=== PATIENT | female | born 1960 | race Caucasian/White ===

== ENCOUNTER → 2019-05-07 11:25 | Outpatient (CLI) | payer BC, SELFPAY ==
--- NOTE | ~2019-05-07 | MM_ITS ---
EXAMINATION: MM screening [facility] BI w [facility] HISTORY: Screening mammogram TECHNIQUE: Craniocaudal and mediolateral oblique 3-D tomosynthesis images were obtained and synthetic 2-D images were generated. CAD analysis was submitted and interpreted. COMPARISON: Comparison to multiple prior studies sequentially, with oldest reviewed study dated 04/12. BREAST PARENCHYMAL COMPOSITION: There are scattered areas of fibroglandular density. FINDINGS: There is a cluster of pleomorphic calcifications upper outer quadrant of the right breast a nd area of previous biopsy. These calcifications have increased in number and density compared with p rior study. The left breast is stable without evidence for malignancy. IMPRESSION: 1. Progression of pleomorphic calcifications upper outer quadrant of the right breast. 2. Stereotactic right breast biopsy recommended. BI-RADS CATEGORY 4-SUSPICIOUS ABNORMALITY Reviewed, dictated and finalized at location A. NISTRATIVE ASSISTANT FRONT DESK
== END ==
PROVIDERS: Visit Provider Nurse Practitioner
DX: Z12.31 Encounter for screening mammogram for malignant neoplasm of breast (principal); R92.8 Other abnormal and inconclusive findings on diagnostic imaging of breast
CPT/HCPCS: 77063; 77067

== ENCOUNTER → 2020-04-24 08:48 | Outpatient (CLI) | payer BC, SELFPAY ==
--- NOTE | ~2020-04-24 | MMUS_ITS ---
EXAMINATION: MM diagnostic [facility] BI w [facility], US breast RT limited HISTORY: Right breast microcalcifications TECHNIQUE: Bilateral ML, MLO and craniocaudal 3-D tomosynthesis images were performed and synthetic 2 -D images were generated. Bilateral rotated lateral cc views. Magnification views of the right breast. CAD analysis was submitted and interpreted. High resolution breast ultrasound was performed. COMPARISON: 05/22/2018 diagnostic right digital mammogram and limited right breast ultrasound 04/27/2018 bilateral digital screening mammogram 04/25/2017 diagnostic right digital mammogram and limited right breast ultrasound 04/14/2017, 04/12/2016, 04/03/2015 and 03/25/2014 bilateral digital screening mammogram examinations FINDINGS: MAMMOGRAPHIC FINDINGS: There is chronic asymmetric increased density in the upper outer quadrant of the right breast. There are some microcalcifications in the very posterior aspect of the upper outer quadrant of the ri ght breast. There is a biopsy marker and this area; history of prior benign right breast biopsy of is location. No interval suspicious mass or new architectural distortion, malignant calcification, skin thickening or retraction or other significant change of either breast is evident. ULTRASOUND: No suspicious mass is evident. No suspicious shadowing is evident. IMPRESSION: 1. Probable benign findings 2. 6 month diagnostic right mammogram and right upper outer quadrant breast ultrasound follow-up is r ecommended. BI-RADS category 3, probably benign findings. Reviewed, dictated and finalized at location A. WAL SPECIALIST IMPRESSION: 1. Probable benign findings 2. 6 month diagnostic right mammogram and right upper outer quadrant breast ult rasound follow-up is recommended. BI-RADS category 3, probably benign findings.
== END ==
PROVIDERS: Visit Provider Nurse Practitioner
DX: R92.8 Other abnormal and inconclusive findings on diagnostic imaging of breast (principal)
CPT/HCPCS: 76642; 77062; 77066; G0279

== ENCOUNTER → 2021-06-28 09:16 | Outpatient (CLI) | payer BC, SELFPAY ==
--- NOTE | ~2021-06-28 | DEXA_ITS ---
Bone Density Report Name: ANGELA LOZOYA Age: 61 Sex: Female Ethnicity: White Date of : 1960 Indication: postmenopausal; screening for osteoporosis; Referring Provider: PASHA, KHANG Study: Bone densitometry was performed. Exam Date: June 28, 2021 Accession number: [id number] Bone Density: Region BMD T-score Z-score Classification AP Spine (L1-L4) 1.225 1.6 3.2 Normal Femoral Neck (Left) 0.937 0.8 2.2 Normal Total Hip (Left) 1.032 0.7 1.8 Normal Femoral Neck (Right) 0.935 0.8 2.2 Normal Total Hip (Right) 1.009 0.6 1.7 Normal Total Hip Mean 1.021 0.7 1.8 Normal World Health Organization criteria for BMD impression classify patients as: Normal (T-score at or above -1.0), Osteopenia (T-score between -1.0 and -2.5), or Osteoporosis (T-score at or below -2.5). 10-year Fracture Risk: FRAX not reported because: All T-scores for Spine Total, Hip Total, Femoral Neck at or above -1.0 Previous Exams: Region Exam Age BMD T-score BMD Change BMD Change Date g/cm2 vs Baseline vs Previous AP Spine(L1-L4) 06/28/2021 61 1.225 1.6 -0.098* -0.062* 04/12/2016 55 1.288 2.2 -0.036* -0.036* 03/04/2013 52 1.323 2.5 Total Hip(Left) 06/28/2021 61 1.032 0.7 -0.066* -0.084* 04/12/2016 55 1.116 1.4 0.018 0.018 03/04/2013 52 1.098 1.3 Total Hip(Right) 06/28/2021 61 1.009 0.6 -0.077* -0.039* 04/12/2016 55 1.049 0.9 -0.038* -0.038* 03/04/2013 52 1.086 1.2 *Denotes significance at 95% confidence level, LSC for AP Spine = 0.022 g/cm2, LSC for Total Hip = 0.027 g/cm2 Clinical Information Provided by Patient: Has used the following medications: Vitamin D Patient maximum height was 67.5 Menopause Age: 58 Drinks caffeinated beverages Onset of menses at age 11.5 Number of children 2 Impression: The patient has normal bone mass. The BMD for the AP Spine(L1-L4) decreased, changing by -0.062 since the last DXA exam. The BMD for the Total Hip(Left) decreased, changing by -0.084 since the last DXA exam. The BMD for the Total Hip(Right) decreased, changing by -0.039 since the last DXA exam. Discussion: BONE DENSITY IS ABOVE THE MINIMUM DESIRABLE LEVEL AT ALL SKELETAL SITES TESTED. This patient?s bone mineral density is above the minimum desirable level (T-score -1.0 or better) at all sites measured. The patient shou
--- NOTE | ~2021-06-28 | MMUS_ITS ---
EXAMINATION: MM diagnostic [facility] BI w [facility], US breast RT limited HISTORY: Short-term follow-up of chronic asymmetric increased density in the upper outer quadrant of right breast and posterior upper outer quadrant right microcalcifications TECHNIQUE: ML, MLO and craniocaudal 3-D tomosynthesis images of both breasts were performed and synth etic 2-D images were generated. Magnification views of right breast 3 projections. CAD analysis was s ubmitted and interpreted. High resolution upper outer quadrant right breast ultrasound was performed. COMPARISON: April 24, 2020 diagnostic bilateral mammogram and limited right breast ultrasound May 07, 2019 bilateral screening mammogram 05/22/2018 diagnostic right mammogram and limited right breast ultrasound 04/27/2018 bilateral screening mammogram 04/25/2017 diagnostic right mammogram and limited right breast ultrasound 04/14/2017 bilateral screening mammogram BREAST PARENCHYMAL COMPOSITION: The breasts are heterogeneously dense, which may obscure small masses . FINDINGS: MAMMOGRAPHIC FINDINGS: There is chronic asymmetric increased density in the upper outer right breast compared to the left. There is a biopsy marker in the posterior upper outer right breast. Grouped microcalcifications are again noted in the posterior upper outer quadrant of the right breast . These are relatively circular or oval in shape. No suspicious linear or branching microcalcificatio ns are noted. ULTRASOUND: Right breast 10:00 6.5 cm from nipple: Parallel circumscribed 8 x 3.2 x 4.7 mm solid lesion without i nternal vascularity or suspicious shadowing No suspicious mass or shadowing of the right breast upper outer quadrant is noted. IMPRESSION: 1. Probably benign findings of right breast 2. 6 month diagnostic right mammogram and right breast ultrasound follow-up are recommended BI-RADS category 3, probably benign findings. Reviewed, dictated and finalized at location A. IMPRESSION: 1. Probably benign findings of right breast 2. 6 month diagnostic right mammogram and right breast ultrasound follow-up are recommended BI-RADS category 3, probably benign findings.
== END ==
PROVIDERS: PCP Family Medicine; Visit Provider Nurse Practitioner
DX: R92.8 Other abnormal and inconclusive findings on diagnostic imaging of breast (principal); Z78.0 Asymptomatic menopausal state
CPT/HCPCS: 76642; 77062; 77066; 77080; G0279

== ENCOUNTER 2022-03-15 11:00 | Emergency (ER) | payer BC, SELFPAY ==
--- NOTE | ~2022-03-15 | XR_ITS ---
AP view of the pelvis and AP and lateral views of the left hip Clinical history: Pain Findings: No acute fracture or dislocation is seen. Osseous alignment is anatomic. Bilateral hip and SI joint spaces are preserved. Soft tissues are unremarkable. Impression: No significant abnormality is seen. Reviewed, dictated and finalized at [facility]. OR COMMISSIONS ANALYST Impression: No significant abnormality is seen.
--- NOTE | 2022-03-15 11:04 | ED.BACK ---
HPI - Back Pain/Injury General Chief Complaint: Back Pain/Injury Stated Complaint: lower back,lt hip pain Time Seen by Provider: 03/15/22 11:29 Source: patient, RN notes reviewed and old records reviewed Mode of arrival: ambulatory Limitations: no limitations History of Present Illness HPI Narrative: 61-year-old female presents to the [facility] with complaints of left hip pain for over 1 week. Was treating at home, believed it was bursitis. Has been taking ibuprofen. Monday she states she felt better, clean the house. States that she normally walks about a miles a day. Woke up Monday with increased pain. Tried calling primary care provider with they were closed yesterday. Denies any injury. No bruising or swelling noted walks with a normal gait. Pain is better when she lays back Related Data Home Medications Medication Instructions Recorded Confirmed cholecalciferol (vitamin D3) 10 10 mcg PO DAILY 07/14/21 03/15/22 mcg (400 unit) capsule levothyroxine 50 mcg capsule 50 mcg PO DAILY 07/14/21 03/15/22 Allergies Allergy/AdvReac Type Severity Reaction Status Date / Time Antihistamines - Allergy Severe system Verified 03/15/22 11:11 Ethylenediamine irritation aspirin Allergy Severe esophagus Verified 03/15/22 11:11 and stomach irritation Review of Systems Review of Systems: All systems reviewed & are unremarkable except as noted in HPI and below Constitutional: Constitutional: Reports no additional constitutional complaints Eyes: Eyes: Reports no additional eye complaints ENT: Reports system reviewed and no additional complaints, except as documented Cardiovascular: Cardiovascular: Reports no additional cardiovascular complaints, Denies chest pain and Denies dyspnea Respiratory: Respiratory: Reports no additional respiratory complaints, Denies chest congestion, Denies cough and Denies dyspnea Gastrointestinal: Gastrointestinal: Reports no additional gastrointestinal complaints, Denies abdominal pain, Denies nausea and Denies vomiting Musculoskeletal: Musculoskeletal: Reports as per HPI, Reports arthralgias (Left hip) and Denies joint swelling Integumentary/Breasts: Skin/Breast: Reports system reviewed and no additional complaints, except as docu Neurologic: Reports system reviewed and no additional complaints, except as documented Psychiatric: Psychiatric: Reports no additional psychiatric complaints Allergic/Immunologic: Allergic/Immunologic: Reports no additional allergic/immunologic complaints PMFSH Past Medical History Medical History Hypothyroid Family History Family History Mother Alzheimer's dementia Social History Social History Smoking status: Never smoker Second hand tobacco smoke exposure: No Alcohol intake: current Drinks per week: 1 Alcohol use details: drinks wine socially Substance use: never Substance use type: does not use Comments At the time of my signature, I reviewed and agree with the nursing past medical, surgical, social, and family history. There is no relevant family history pertinent to the patient complaint. Exam Const: General: cooperative, healthy appearing, comfortable, no acute distress, well developed, alert and well nourished Nutritional Appearance: well nourished Orientation/consciousness: patient oriented x3 Limitations: no limitations HENMT: Head: normal to inspection Ears: hearing grossly normal bilaterally and external ears normal Face/Nose/Sinus: Normal external nose present, Normal nares present, Normal nasal mucous membranes and turbinates present and normal facial exam Face and sinus: normal facial exam Mouth: Yes Normal oral and palatal mucosa present, Yes lip normal and Yes moist mucous membranes Eyes: General: appearance normal, both eyes and all re
[2022-03-15 11:08] VITALS: BP 155/86; PULSE 77; RESP 20; TEMP 36.9; O2SAT 100
== END 2022-03-15 12:06 | disposition home or self-care (01) ==
PROVIDERS: Emergency Provider Nurse Practitioner; PCP Family Medicine
DX: M25.552 Pain in left hip (principal); E03.9 Hypothyroidism, unspecified
CPT/HCPCS: 73502; 99213; G0463

== ENCOUNTER → 2022-06-30 07:50 | Outpatient (CLI) | payer BC, SELFPAY ==
--- NOTE | ~2022-06-30 | MMUS_ITS ---
EXAMINATION: MM diagnostic [facility] BI w [facility], US breast RT limited HISTORY: Overdue follow-up for probably benign right breast masses TECHNIQUE: Craniocaudal, mediolateral, and mediolateral oblique 3-D tomosynthesis images of the breas ts were performed and synthetic 2-D images were generated. CAD analysis was submitted and interpreted . High resolution limited right breast ultrasound was performed. COMPARISON: 06/28/2021, 04/24/2020, 05/07/2019 BREAST PARENCHYMAL COMPOSITION: There are scattered areas of fibroglandular density. FINDINGS: MAMMOGRAPHIC FINDINGS: There are stable calcifications in the upper outer quadrant of the right breast which are previously undergone biopsy change. There is also stable focal asymmetry in the upper outer quadrant of the righ t breast. No suspicious mass, calcification, or architectural distortion are identified in either jimi ast to suggest malignancy. There has been no suspicious interval change. ULTRASOUND: The previously described hypoechoic mass at the 10:00 location, 6.5 cm from the nipple has decreased in size now measuring 3 mm, previously 5 mm. A 6 mm x 3 mm oval, circumscribed, parallel, hypoechoic mass with no posterior features or internal vascularity at the 11:00 location, 3.5 cm from the nipple also demonstrates decrease in size. IMPRESSION: 1. No mammographic or sonographic evidence of malignancy. 2. Recommend routine screening mammography in one year. BI-RADS Category 2: Benign finding(s). Reviewed, dictated and finalized at location A. IMPRESSION: 1. No mammographic or sonographic evidence of malignancy. 2. Recommend routine screening mammography in one year. BI-RADS Category 2: Benign finding(s).
== END ==
PROVIDERS: PCP Family Medicine; Visit Provider Obstetrics & Gynecology Gynecology
DX: R92.8 Other abnormal and inconclusive findings on diagnostic imaging of breast (principal)
CPT/HCPCS: 76642; 77062; 77066; G0279

== ENCOUNTER 2023-08-04 12:22 | Outpatient (CLI) | payer MEDICARE, SELFPAY ==
--- NOTE | ~2023-08-04 | MM_ITS ---
EXAMINATION: MM screening [facility] BI w [facility] HISTORY: Screening mammogram TECHNIQUE: Craniocaudal and mediolateral oblique 3-D tomosynthesis images were obtained and synthetic 2-D images were generated. CAD analysis was submitted and interpreted. COMPARISON: June 30, 2022 diagnostic bilateral mammogram and Limited right breast ultrasound examina tion June 28, 2021 bilateral diagnostic mammogram and Limited right breast ultrasound April 14, 2017 bilateral screening mammogram BREAST PARENCHYMAL COMPOSITION: The breasts are heterogeneously dense, which may obscure small masses . FINDINGS: There is asymmetric increased soft tissue density and multiple grouped microcalcifications in the upper outer right breast. Diagnostic right mammogram with compression and magnification views is recommended in addition to right breast ultrasound examination. No suspicious mass, architectural distortion, malignant calcification, skin thickening or retraction or significant change of the left breast is noted. IMPRESSION: 1. Asymmetric increased density and multiple grouped microcalcifications, upper outer right breast 2. Diagnostic right mammogram with compression and magnification views and right breast ultrasound ex amination are recommended BI-RADS Category 0: Incomplete: Needs additional imaging evaluation. Reviewed, dictated and finalized at location B. IMPRESSION: 1. Asymmetric increased density and multiple grouped microcalcifications, upper outer right breast 2. Diagnostic right mammogram with compression and magnification views and righ t breast ultrasound examination are recommended BI-RADS Category 0: Incomplete: Needs additional imaging evaluation.
== END 2023-08-04 12:23 ==
LOC: MICIMG 12:24
PROVIDERS: PCP Family Medicine; Visit Provider Nurse Practitioner
DX: Z12.31 Encounter for screening mammogram for malignant neoplasm of breast (principal); R92.8 Other abnormal and inconclusive findings on diagnostic imaging of breast
CPT/HCPCS: 77063; 77067

== ENCOUNTER 2023-09-12 08:46 | Outpatient (CLI) | payer MEDICARE, SELFPAY ==
--- NOTE | ~2023-09-12 | MM_ITS ---
EXAMINATION: MM diagnostic sheba RT w [facility] HISTORY: Right breast microcalcifications and asymmetry TECHNIQUE: Additional 3-D tomosynthesis images, and spot magnification views, of the right breast wer e performed and synthetic 2-D images were generated. CAD analysis was submitted and interpreted. COMPARISON: 08/04/2023, 06/30/2022, 06/28/2021 BREAST PARENCHYMAL COMPOSITION:Dense: The breasts are heterogeneously dense, which may obscure small masses. FINDINGS: Area asymmetry at the upper, outer right breast effaces on spot compression. No mass lesion or persistent distortion evident. Spot magnification views demonstrate amorphous and punctate very f ine microcalcifications at the upper, outer right breast posteriorly, with nearby biopsy clip. These are probably without significant change from prior exams, and compatible with benign calcified indica tions. IMPRESSION: No mammographic evidence for malignancy. Benign microcalcifications at the upper, outer right breast, with probable prior biopsy. BI-RADS Category 2: Benign finding(s). Reviewed, dictated and finalized at location M. IMPRESSION: No mammographic evidence for malignancy. Benign microcalcifications at the uppe r, outer right breast, with probable prior biopsy. BI-RADS Category 2: Benign finding(s).
== END 2023-09-12 08:47 ==
PROVIDERS: PCP Family Medicine; Visit Provider Obstetrics & Gynecology Gynecology
DX: R92.8 Other abnormal and inconclusive findings on diagnostic imaging of breast (principal)
CPT/HCPCS: 77061; 77065; G0279

== ENCOUNTER 2024-02-17 10:59 | Emergency (ER) | payer MEDICARE, SELFPAY ==
[2024-02-17 11:09] VITALS: BP 125/86; PULSE 82; RESP 17; TEMP 36.8; O2SAT 100
--- NOTE | 2024-02-17 11:36 | ED_ITS ---
HPI - General Adult General Chief complaint: Skin/Abscess/Foreign Body Stated complaint: Rash Source: patient Mode of arrival: ambulatory Limitations: no limitations History of Present Illness HPI narrative: Patient presents for evaluation of a rash to her back. She states about one week ago she ate shrimp cocktail. She developed a yeast infection thereafter for which she took OTC monistat. She then developed a pruritic rash to her back, which has progressively spread across her back. Rash is pruritic. She has applied hydrocortisone 1% cream and has not had improvement in her symptoms. She has not had similar symptoms in the past. She noted redness and itching to her right forearm today. She has not experienced any difficulty breathing or swallowing. Related Data Home Medications ?Medication ?Instructions ?Recorded ?Confirmed ?Last Taken ?Type levothyroxine 50 mcg capsule 50 mcg PO DAILY 07/14/21 02/24/24 Unknown History Allergies Allergy/AdvReac Type Severity Reaction Status Date / Time Antihistamines - Allergy Severe system Verified 02/17/24 11:17 Ethylenediamine irritation aspirin Allergy Severe esophagus Verified 02/17/24 11:17 and stomach irritation Review of Systems Review of Systems: CONSTITUTIONAL: Denies fever, chills, or sweats. EYES: Denies visual changes, redness, or discharge. ENT: Denies rhinorrhea, congestion, sore throat, or otalgia. CARDIOVASCULAR: Denies chest pain, palpitations, or edema. RESPIRATORY: Denies cough or dyspnea. GASTROINTESTINAL: Denies abdominal pain, nausea, vomiting, or diarrhea. GENITOURINARY: Denies dysuria or hematuria. SKIN: Reports pruritic rash to her back and right forearm MUSCULOSKELETAL: Denies back pain, joint pain, or myalgia. NEUROLOGIC: Denies headache, numbness, dizziness, or weakness. PSYCHIATRIC: Denies anxiety or depression. [facility] Past Medical History Medical History Hypothyroid Surgical History Surgical History No pertinent past surgical history Family History Family History Mother Alzheimer's dementia Social History Social History Smoking status: Never smoker Second hand tobacco smoke exposure: No Alcohol intake: current Drinks per week: 1 Alcohol use details: drinks wine socially Substance use: never Substance use type: does not use Lack of Transportation: No Lack of Food: Never True Current Housing: I Have Housing Concerned About Future Housing: No Difficulty Paying Gas/Electric Bills: No Difficulty Paying for Meds: No Currently Unemployed: No Education: Bachelor's Degree Difficulty w/ Childcare or Family Care: No Living arrangements: with family Gender identity (if verbalized by the patient): Female Spiritual care concerns: No Agree to blood products: Yes Exam Narrative: GENERAL: Well-appearing, well-nourished, and in no acute distress. HEAD: Normocephalic, atraumatic. EYES: PERRLA and EOMI. ENT: Nares clear, no rhinorrhea or epistaxis. Mucous membranes moist. Oropharynx without tonsillar hypertrophy exudate or other lesions. Bilateral TMs pearly garcia nonbulging NECK: Supple. No adenopathy or masses. No carotid bruits or JVD CHEST: Clear to auscultation. No respiratory distress. No wheezes rales or rhonchi HEART: Regular rate and rhythm. No murmur heard. Normal peripheral pulses. ABDOMEN: Soft, nontender, nondistended, normal active bowel sounds. EXTREMITIES: Normal range of motion. No edema. SKIN: There are a few several centimeter areas of erythema to right forearm. There are multiple slight raised macules to the back which are erythematous. There is a significant body surface area on the back which has confluent erythema around NEURO: No focal deficits. Alert and oriented x3. PSYCH: Normal mood and affect. Course Course Level of Care: Express Care Visit Vital Signs Vital signs: Vital Signs Temperature 36.8 C 02/17/24 11:09 Pulse Rate 82 02/17/24 11:09 Respiratory Rate 17 02/17/24 11:09 Blood Pressure 125/86 02/17/24 11:09 Pulse Oximetry 100 02/17/24 11:09 Oxygen Delivery Room Air 02/17/24 11:09 Temperature 36.8 C 02/17/24 11:09 Pulse Rate 82 02/17/24 11:09 Respiratory Rate 17 02/17/24 11:09 Blood Pressure 125/86 02/17/24 11:09 Pulse Oximetry 100 02/17/24 11:09 Oxygen Delivery Room Air 02/17/24 11:09 Medical Decision Making Vital Signs Vital Signs: Vital Signs Temperature 36.8 C 02/17/24 11:09 Pulse Rate 82 02/17/24 11:09 Respiratory Rate 17 02/17/24 11:09 Blood Pressure 125/86 02/17/24 11:09 Pulse Oximetry 100 02/17/24 11:09 Oxygen Delivery Room Air 02/17/24 11:09 Temperature 36.8 C 02/17/24 11:09 Pulse Rate 82 02/17/24 11:09 Respiratory Rate 17 02/17/24 11:09 Blood Pressure 125/86 02/17/24 11:09 Pulse Oximetry 100 02/17/24 11:09 Oxygen Delivery Room Air 02/17/24 11:09 Discharge Plan Discharge Clinical Impression: Dermatitis Patient Disposition: Home, Self-Care Condition: Stable Instructions: Antibiotic Form, Dermatitis (ED) Patient Language: Fijian Prescriptions: No Action ketoconazole 2 % cream 1 applic topical BID Qty: 30 0RF levothyroxine 50 mcg capsule 50 mcg PO DAILY Follow-up/Referrals: Laurie Beltran MD [Primary Care Provider] - Time of Disposition: 11:35
== END 2024-02-17 11:36 | disposition home or self-care (01) ==
PROVIDERS: Emergency Provider Nurse Practitioner; PCP Family Medicine
DX: L30.9 Dermatitis, unspecified (principal); E03.9 Hypothyroidism, unspecified
CPT/HCPCS: 99213; G0463

== ENCOUNTER 2024-02-24 10:42 | Emergency (ER) | payer MEDICARE, SELFPAY ==
[2024-02-24 10:46] VITALS: BP 137/76; PULSE 80; RESP 16; TEMP 36.7; O2SAT 100
--- NOTE | 2024-02-24 10:57 | ED.SKABFB ---
HPI - Skin/Abscess/Foreign Bdy General Chief complaint: Skin/Abscess/Foreign Body Stated complaint: rash arms History of Present Illness HPI narrative: PATIENT PRESENTS WITH AN ITCHY RASH UNDER BOTH OF HER ARMS. PATIENT WAS HERE 7 DAYS AGO AND TREATED FOR CONTACT DERMATITIS RASH TO HER BACK WHICH HAS SINCE RESOLVED. PATIENT DENIES ANY NEW DEODORANTS OR ANY CHANGE IN LIFESTYLE. PATIENT STATES SHE NOTED A RASH A COUPLE DAYS AGO UNDER BOTH AXILLARY. Related Data Home Medications ?Medication ?Instructions ?Recorded ?Confirmed ?Last Taken ?Type levothyroxine 50 mcg capsule 50 mcg PO DAILY 07/14/21 02/24/24 Unknown History Allergies Allergy/AdvReac Type Severity Reaction Status Date / Time Antihistamines - Allergy Severe system Verified 02/17/24 11:17 Ethylenediamine irritation aspirin Allergy Severe esophagus Verified 02/17/24 11:17 and stomach irritation Review of Systems Review of Systems: CONSTITUTIONAL: DENIES CHILLS, OR SWEATS. REPORTS FEVER AND GENERALIZED BODY ACHES EYES: DENIES VISUAL CHANGES, REDNESS, OR DISCHARGE. ENT: DENIES OTALGIA. REPORTS NASAL CONGESTION RUNNY NOSE AND SORE THROAT CARDIOVASCULAR: DENIES CHEST PAIN, PALPITATIONS, OR EDEMA. RESPIRATORY: DENIES DYSPNEA. REPORTS OCCASIONAL COUGH GASTROINTESTINAL: DENIES ABDOMINAL PAIN, NAUSEA, VOMITING, OR DIARRHEA. GENITOURINARY: DENIES DYSURIA OR HEMATURIA. SKIN: DENIES RASH OR ITCHING. MUSCULOSKELETAL: DENIES BACK PAIN, JOINT PAIN, OR MYALGIA. REPORTS GENERALIZED BODY ACHES NEUROLOGIC: DENIES HEADACHE, NUMBNESS, OR WEAKNESS. PSYCHIATRIC: DENIES ANXIETY OR DEPRESSION. [facility] Past Medical History Medical History Hypothyroid Surgical History Surgical History No pertinent past surgical history Family History Family History Mother Alzheimer's dementia Social History Social History Smoking status: Never smoker Second hand tobacco smoke exposure: No Alcohol intake: current Drinks per week: 1 Alcohol use details: drinks wine socially Substance use: never Substance use type: does not use Lack of Transportation: No Lack of Food: Never True Current Housing: I Have Housing Concerned About Future Housing: No Difficulty Paying Gas/Electric Bills: No Difficulty Paying for Meds: No Currently Unemployed: No Education: Bachelor's Degree Difficulty w/ Childcare or Family Care: No Living arrangements: with family Gender identity (if verbalized by the patient): Female Spiritual care concerns: No Agree to blood products: Yes Comments AT TIME OF SIGNATURE, AGREE WITH NURSING PAST MEDICAL, SURGICAL, SOCIAL AND FAMILY HISTORY. THERE IS NO RELEVANT FAMILY HISTORY PERTINENT TO THE PRESENTING COMPLAINT Exam Narrative: bright red rash on area of concern, satellite lesions present, well demarcated. consistent with joel dermatitis. No signs of secondary bacterial cellulitis. no swelling or involvement of thighs or trunk. UNDER BOTH AXILLA THE PATIENT IS A WELL-DEVELOPED, WELL-NOURISHED IN NO ACUTE DISTRESS. SKIN: SKIN IS WARM AND DRY WITHOUT ERYTHEMA, SWELLING OR EXUDATE. THERE IS GOOD TURGOR. NO TENTING. HEAD: ATRAUMATIC. NORMOCEPHALIC. NO TEMPORAL OR SCALP TENDERNESS. EYES: MOIST AND BRIGHT. SCLERA AND CONJUNCTIVAE NORMAL. NO DISCHARGE. PERRLA. EXTRAOCULAR MOTIONS INTACT. GROSS VISUAL ACUITY INTACT. EARS: PINNA IS NORMAL SHAPE AND CONTOUR. CLEAR EXTERNAL AUDITORY CANALS. TM PEARLY POE WITH GOOD CONE OF LIGHT, NO ERYTHEMA OR SUPPURATION. BILATERAL CERUMEN NOTED NO GROSS HEARING DEFICIT. NOSE: PINK, MOIST MUCOSA WITH GOOD AIR MOVEMENT. CLEAR RHINORRHEA WITHOUT NASAL FLARING. SEPTUM MIDLINE. MOUTH: MOIST MUCOUS MEMBRANES. THROAT; MILD ERYTHEMA NOTED TO POSTERIOR OROPHARYNX WITH MODERATE POSTNASAL DRAINAGE. WITHOUT EXUDATE OR ULCERATION.. UVULA MIDLINE. NORMAL MOVEMENT OF SOFT PALATE. NECK: SUPPLE AND NONTENDER WITH FULL RANGE OF MOTION WITHOUT DISCOMFORT. NO MENINGEAL SIGNS. LUNGS: EQUAL AND BILATERAL BREATH SOUNDS WITHOUT WHEEZES, RALES OR RHONCHI. CHEST: THE CHEST WALL IS WITHOUT RETRACTIONS OR USE OF ACCESSORY MUSCLES. HEART: HAS A REGULAR RATE AND RHYTHM WITHOUT MURMUR, GALLOPS, CLICK OR RUB. ABDOMEN: SOFT, NONTENDER WITH POSITIVE ACTIVE BOWEL SOUNDS. NO REBOUND TENDERNESS. EXTREMITIES: WITHOUT CYANOSIS, CLUBBING OR EDEMA. EQUAL 2+ DISTAL PULSES AND 2 SECOND CAPILLARY REFILL NOTED. NEUROLOGIC: ALERT, ACTIVE, . THE PATIENT MOVES ALL EXTREMITIES WITH NORMAL MUSCLE STRENGTH. NORMAL MUSCLE TONE IS NOTED. NORMAL COORDINATION IS NOTED. NO FOCAL NEUROLOGICAL FINDINGS NOTED. Course Course Level of Care: Express Care Visit Vital Signs Vital signs: Vital Signs Temperature 36.7 C 02/24/24 10:46 Pulse Rate 80 02/24/24 10:46 Respiratory Rate 16 02/24/24 10:46 Blood Pressure 137/76 02/24/24 10:46 Pulse Oximetry 100 02/24/24 10:46 Oxygen Delivery Room Air 02/24/24 10:46 Temperature 36.7 C 02/24/24 10:46 Pulse Rate 80 02/24/24 10:46 Respiratory Rate 16 02/24/24 10:46 Blood Pressure 137/76 02/24/24 10:46 Pulse Oximetry 100 02/24/24 10:46 Oxygen Delivery Room Air 02/24/24 10:46 Please BRIELLE schedule a followup visit with your personal physician for further evaluation and treatment. Including recheck and discussion of your blood pressure. If your symptoms persist, change or worsen significantly before you can contact your personal physician then please, without delay, go to the emergency department for further evaluation Discharge Plan Discharge Clinical Impression: Fungal dermatitis Patient Disposition: Home, Self-Care Condition: Stable Instructions: Antifungals (On the skin) Additional Instructions: KEEP AREA UNDER BOTH ARMS CLEAN AND DRY APPLY KETOCONAZOLE CREAM PRESCRIBED CONTINUE TO TAKE BENADRYL NEEDED FOR ITCH FOLLOW-UP WITH PRIMARY CARE PROVIDER IN 3-4 DAYS FOR RE-EVALUATION IF ANY NEW OR WORSENING SYMPTOMS PLEASE GO TO ER IMMEDIATELY FURTHER EVALUATION TREATMENT Patient Language: Turkmen Prescriptions: New ketoconazole 2 % cream 1 applic topical BID Qty: 30 0RF No Action levothyroxine 50 mcg capsule 50 mcg PO DAILY Follow-up/Referrals: Laurie Beltran MD [Primary Care Provider] -
--- OUTSIDE RECORDS SUMMARY | 2024-02-28 06:29 | XMS_ITS | Clinical Summary ---
Author Organization [facility] Address [address] [place] [address] Care Team Providers Care Health Care Liaison Name Role Phone Unavailable Primary Care Provider Unavailabl e Social History Tobacco Use Types Packs/Day Years Used Date Smoking Tobacco: Never Assessed Sex and Gender Information Value Date Recorded Sex Assigned at Not on file Gender Identity Not on file Sexual Orientation Not on file Plan of Treatment Health Maintenance Due Date Last Done Comments DTAP/TDAP/TD VACCINES (1 - Tdap) 1977 BREAST CANCER SCREENING 1998 COLORECTAL SCREENING 06/27/2003 Colorectal Cancer Screening 06/27/2003 FIT-DNA Q 3 years 06/27/2003 FIT/FOBT Q 1 year 06/27/2003 Flex Sig/CT Colonography Q 5 years 06/27/2003 ZOSTER VACCINE (1 of 2) 2008 OSTEOPOROSIS SCREENING 06/27/2023 PNEUMOCOCCAL VACCINE 65+ YEARS (1 of 1 - PCV) 06/27/19 INFLUENZA VACCINE (#1) 2023 RSV VACCINE (60+ or ) (1 - 1-dose 75+ series) 2033
--- OUTSIDE RECORDS SUMMARY | 2024-02-28 06:29 | XMS_ITS | Encounter Summary ---
Author Organization [facility] Address [address] [place] [address] Care Team Providers Care Museum Librarian Name Role Phone Unavailable Primary Care Provider Unavailabl e Reason for Visit * Reason Onset Date Comments Information 05/31/2018 Encounter Details Date Type Department Care Team (Late st Contact Info) Description 05/31/2018 Telephone [facility] BREAST SURGERY [facility] [address] [place] [address] Tessie Mendoza, NO ADDRESS ON FILE Information Social History Tobacco Use Types Packs/Day Years Used Date Smoking Tobacco: Never Assessed Sex and Gender Information Value Date Recorded Sex Assigned at Not on file Gender Identity Not on file Sexual Orientation Not on file documented as of this encounter Miscellaneous Notes * Telephone Encounter - Glen Mock - 05/31/2018 9:34 AM CDT Pt LVM canceling says she was able to get in to see a physician at [facility] on 06/11 and would like to cancel her 06/26 appt. documented in this encounter Plan of Treatment Not on file documented as of this encounter Visit Diagnoses Not on filedocumented in this encounter
== END 2024-02-24 11:05 | disposition home or self-care (01) ==
PROVIDERS: Emergency Provider Nurse Practitioner Family; PCP Family Medicine
DX: B36.9 Superficial mycosis, unspecified (principal); E03.9 Hypothyroidism, unspecified
CPT/HCPCS: 99213; G0463

== ENCOUNTER 2024-09-12 11:34 | Outpatient (CLI) | payer MEDICARE, SELFPAY ==
--- NOTE | ~2024-09-12 | MM_ITS ---
EXAMINATION: MM screening [facility] HISTORY: Screening mammogram TECHNIQUE: Craniocaudal and mediolateral oblique 3-D tomosynthesis images were obtained and synthetic 2-D images were generated. CAD analysis was submitted and interpreted. COMPARISON: 08/04/2023, 06/30/2022, 06/28/2021, 04/24/2020 BREAST PARENCHYMAL COMPOSITION:Dense: The breasts are heterogeneously dense, which may obscure small masses. FINDINGS: No suspicious mass, calcification, or architectural distortion are identified in either jimi ast to suggest malignancy. There has been no suspicious interval change. IMPRESSION: No mammographic evidence of malignancy. Recommend routine screening mammography in one year. BI-RADS Category 1: Negative Reviewed, dictated and finalized at location .
== END 2024-09-12 11:35 | disposition home or self-care (01) ==
LOC: MICIMG 11:35
PROVIDERS: PCP Family Medicine; Visit Provider Nurse Practitioner
DX: Z12.31 Encounter for screening mammogram for malignant neoplasm of breast (principal)
CPT/HCPCS: 77063; 77067